=== PATIENT | male | born 1980 | race Caucasian/White ===

== ENCOUNTER 2021-09-06 08:01 | Emergency (ER) | payer MEDICAID ==
[~2021-09-06] VITALS: Ht 182.9 cm; Wt 127.3 kg
[~2021-09-06 08:01] MED LIST: DOXY100T2 PO; NAPR-1154 PO
[2021-09-06 08:48] VITALS: BP 150/86
== END 2021-09-06 10:27 | disposition home or self-care (01) ==
LOC: ER 08:02
DX: R45.850 Homicidal ideations (principal); F20.9 Schizophrenia, unspecified; F15.10 Other stimulant abuse, uncomplicated; Z88.8 Allergy status to other drugs, medicaments and biological substances; Z79.899 Other long term (current) drug therapy
CPT/HCPCS: 99281